=== PATIENT | male | born 1960 | race African-American/Black ===

== ENCOUNTER 2022-12-02 23:08 | Emergency (ER) | payer OTHER ==
[2022-12-02 23:22] VITALS: TEMP 98.4; BMI 23.3
[2022-12-02] MEDS ORDERED: ACETAMINOPHEN 325 MG TABLET (FP) PO ONE (23:34)
[2022-12-02] MEDS ORDERED: ASPIRIN 81 MG CHEWABLE TABLETS PO ONE (23:34)
[2022-12-02] MEDS ORDERED: ACETAMINOPHEN 500 MG TABLET (FP) PO ONE (23:34)
[2022-12-02] MEDS ORDERED: ACETAMINOPHEN 325 MG TABLET (FP) ONE (23:58)
[2022-12-03 00:58] LABS: EOS % 3.4 % (0-4.5); HEMATOCRIT 40.3 % (35.4-49); HEMOGLOBIN 13.9 GM/dL (11.7-16.9); LYMPH % 30.6 % (8-40); MCH 29.6 pg (25.7-33.7); MCHC 34.6 g/dl (32.0-35.9); MEAN CELL VOLUME 85.5 fl (80-96); MEAN PLT VOLUME 8.1 fl (7.5-11.1); MONO % 10.3 % (3.8-10.2); NEUT % 54.7 % (42.8-82.8); PLATELET COUNT 241 10^3/uL (134-434); RBC 4.71 M/mm3 (4.00-5.60); RDW 15.6 % (11.9-15.9); WHITE BLOOD COUNT 6.8 K/mm3 (4.0-10.0)
[2022-12-03 01:07] LABS: INR 1.09 (0.83-1.09); PROTHROMBIN TIME (PATIENT) 12.6 SEC (9.7-13.0)
[2022-12-03 01:10] LABS: ACTIVATED PTT 27.4 SECONDS (25.2-36.5)
[2022-12-03 01:39] LABS: ALBUMIN 3.6 g/dl (3.4-5.0); CALCIUM 9.5 mg/dL (8.5-10.1); MAGNESIUM 1.9 mg/dL (1.8-2.4)
[2022-12-03 01:40] LABS: BLOOD UREA NITROGEN 12.5 mg/dL (7-18)
[2022-12-03 01:43] LABS: CREATININE 1.1 mg/dL (0.55-1.3)
[2022-12-03 01:44] LABS: BILIRUBIN,TOTAL 0.4 mg/dL (0.2-1); TOT PROT 6.7 g/dl (6.4-8.2)
[2022-12-03 01:45] LABS: N-TERMINAL BNP 101.4 pg/ml (5-125)
[2022-12-03] MEDS ORDERED: KETOROLAC TROMETHAMINE 30 MG/1 ML VIAL IVPUSH ONE (02:18)
[2022-12-03] MEDS ORDERED: KETOROLAC TROMETHAMINE 30 MG/1 ML VIAL ONE (02:20)
[2022-12-03] MEDS ORDERED: SODIUM CHLORIDE 1,000 ML IV STA (03:52)
[2022-12-03] MEDS ORDERED: VALSARTAN 40 MG TABLET PO ONE (04:56)
[2022-12-03] MEDS ORDERED: VALSARTAN 80 MG TABLET ONE (04:58)
[2022-12-03 05:36] VITALS: BP 161/116; PULSE 64; RESP 14
== END 2022-12-03 05:45 | disposition home or self-care (01) ==
LOC: JER 23:08
PROC: 3E0333Z Introduction of Anti-inflammatory into Peripheral Vein, Percutaneous Approach (ICD-10-PCS; principal; 2022-12-03)
PROC: 3E0337Z Introduction of Electrolytic and Water Balance Substance into Peripheral Vein, Percutaneous Approach (ICD-10-PCS; 2022-12-03)
DX: R07.9 Chest pain, unspecified (principal); Z20.822 Contact with and (suspected) exposure to COVID-19
CPT/HCPCS: 0241U-QW; 36415; 71046-TC-FY; 80053; 82550; 82553; 83735; 83880; 84436; 84443; 84479; 84484; 85025; 85610; 85730; 86850; 86900; 86901; 93005; 93010; 99284-25